=== PATIENT | male | born 1990 | race American Indian/Alaskan Native ===

== ENCOUNTER 2017-11-13 13:04 | Emergency (ER) | payer SELFPAY ==
[2017-11-13 13:21] VITALS: BP 130/92; PULSE 72; RESP 18; TEMP 98.3; O2SAT 100
--- NOTE | 2017-11-13 14:05 | C.PDOC ---
History Of Present Illness 27 y/o M c no PMHx p/w abdominal pain x this morning. States pain is diffuse, crampy, intermittent, nonradiating, mild in severity, associated with NBNB vomiting x 2. Denies fever, chills, chest pain, dyspnea, diarrhea, dysuria. has had this pain multiple times in the past when he has had a stomach virus. He called out of work this morning and was told that he needs to show a doctor's note. Time Seen by Provider: 11/13/17 13:31 Chief Complaint (Nursing): Abdominal Pain Past Medical History Vital Signs: Last Vital Signs Temp 98.3 F 11/13/17 13:18 Pulse 72 11/13/17 13:18 Resp 18 11/13/17 13:18 BP 130/92 H 11/13/17 13:18 Pulse Ox 100 11/13/17 14:07 Family History: States: No Known Family Hx - Social History Hx Alcohol Use: Yes Hx Substance Use: No - Immunization History Hx Tetanus Toxoid Vaccination: No Hx Influenza Vaccination: No Hx Pneumococcal Vaccination: No Review Of Systems Except As Marked, All Systems Reviewed And Found Negative. Constitutional: Negative for: Fever Respiratory: Negative for: Shortness of Breath Physical Exam - Physical Exam Additional Physical Exam Comments: Constitutional: No acute distress. Head: Normocephalic. Atraumatic. Eyes: PERRL. ENT: Moist mucous membranes. Neck: Supple. Cardiovascular: Regular rate. Radial pulse 2+ bilaterally. Chest: No tenderness. Respiratory: Clear to auscultation bilaterally. GI: Soft. Nontender. Nondistended. No rebound or guarding. Back: No CVA tenderness. Musculoskeletal: No tenderness or swelling of extremities. Skin: No rash. Neurologic: Alert, no focal deficit. ED Course And Treatment O2 Sat by Pulse Oximetry: 100 Medical Decision Making Medical Decision Making: Instructed patient to return to ED immediately for worsening pain, fever, intractible vomiting, or pain in specific location of abdomen. Disposition - Disposition Referrals: [facility] [Outside] Disposition: HOME/ ROUTINE Disposition Time: 14:04 Condition: STABLE Prescriptions: Ondansetron ODT [Zofran ODT] 4 mg PO Q8 #12 odt Instructions: Abdominal Pain (ED) Forms: E96 [employer] (Spanish), Work Excuse - Clinical Impression Clinical Impression: Abdominal pain, Vomiting
[2017-11-13 14:30] LABS: SQUAMOUS EPITHIAL < 1 /hpf (0-5); URINE BACTERIA RARE (<OCC); URINE BILIRUBIN NEGATIVE (NEGATIVE); URINE BLOOD NEGATIVE (NEGATIVE); URINE CLARITY Clear (Clear); URINE COLOR Yellow (YELLOW); URINE GLUCOSE (UA) NORMAL (Normal); URINE LEUKOCYTE ESTERASE TRACE Leu/uL (Negative); URINE NITRATE NEGATIVE (NEGATIVE); URINE PROTEIN NEGATIVE (NEGATIVE); URINE UROBILINOGEN NORMAL mg/dL (0.2-1.0)
== END 2017-11-13 14:27 | disposition home or self-care (01) ==
LOC: C.ER 13:04
DX: R10.9 Unspecified abdominal pain (principal); R11.10 Vomiting, unspecified